=== PATIENT | female | born 1975 | race African-American/Black ===

== ENCOUNTER 2023-10-08 23:25 | Emergency (ER) | payer SELFPAY ==
[2023-10-09] MEDS ORDERED: Acetaminophen 500 MG TAB ONE (00:25)
== END 2023-10-09 00:50 | disposition home or self-care (01) ==
LOC: NAV ERS 23:25
DX: S83.92XA Sprain of unspecified site of left knee, initial encounter (principal); F17.210 Nicotine dependence, cigarettes, uncomplicated; W01.0XXA Fall on same level from slipping, tripping and stumbling without subsequent striking against object, initial encounter